=== PATIENT | female | born 1955 | race Caucasian/White ===

== ENCOUNTER 2017-04-28 20:03 | Emergency (ER) | payer OTHER ==
[~2017-04-28] VITALS: Ht 160 cm; Wt 117.0 kg
--- NOTE | ~2017-04-28 | CR72 ---
[facility] A [facility] RADIOLOGY TEXT RESULTS PATIENT: KACI LAN LOCATION: [facility] : 55 UNIT #: [id number] AGE: [address]: Harvey Hendricks MD SEX: F ORDER DR: [id number] [facility] [address] [place], [place] [address] [id number] MR#: [id number] Acc #: [id number] NAME: KACI LAN. : 1955 SEX: F STUDY DATE/TIME: 04/28/2017 21:46 UNIT: [facility] ROOM: STUDY DESCRIPTION: CR Chest Single View Portable Attending Physician: Harvey Hendricks M.D. Ordering Physician: Harvey Hendricks M.D. Primary Care Physician: Moira Perry A.P.R.N. MEDICAL IMAGING REPORT This report is preliminary unless electronic signature is present EXAM AP portable chest DATE: 04/28/2017 HISTORY 61-year-old female with shortness of breath tonight. COMPARISON AP portable chest 11/28/2009. FINDINGS A single AP portable view of the chest shows both lungs to be clear. The heart is normal in size. The mediastinal contour is normal. No significant bone abnormalities are seen. IMPRESSION Normal portable chest. Dictated by... Abby aLnge M.D. THIS IS AN ELECTRONICALLY VERIFIED REPORT Abby Lange M.D. at 04/29/2017 9:56 AM Minesh/richard TD: 04/29/2017 05:29 JOB #: [id number] MEDICAL IMAGING REPORT [facility] A [facility] RADIOLOGY TEXT RESULTS PATIENT: KACI LAN LOCATION: [facility] : 55 UNIT #: [id number] AGE: [address]: Harvey Hendricks MD SEX: F ORDER DR: Page 1 of 1 COPY
--- NOTE | ~2017-04-28 | EKG ---
PATIENT: KACI LAN UNIT #: [id number] Ventricular Rate: 74 BPM Atrial Rate: 74 BPM P-R Interval: 198 ms QRS Duration: 90 ms Q-T Interval: 392 ms QTC Calculation(Bezet): 435 ms P [place]: 14 degrees Calculated R [place]: -14 degrees Calculated T [place]: -2 degrees Diagnosis Line: Normal sinus rhythm Diagnosis Line: Inferior infarct , age undetermined Diagnosis Line: Abnormal ECG Diagnosis Line: No previous ECGs available Diagnosis Line: Confirmed by CHRISTINA MARTINEZ MD ([id number]) on 04/29/2017 Diagnosis Line: 10:06:20 PM INTERPRETING MD: JUAN PEREZ
[~2017-04-28 20:03] MED LIST: AMATIZA; AMATIZA PO; ASPIRIN PO; BACTRIM DS TABL1 TAB PO; DARVOCET-N 1001 TAB PO; LISINOPRIL PO; LORTAB 5/500 TA1 TA1 PO; NEXIUM PO; NUCYNTA50 MG; TOPROL XL PO; TYLOX1 CAP 5/50 PO; VICODIN 5/500 T1 TAB PO; ZANAFLEX PO
[2017-04-28 22:10] LABS: BASOPHIL% 0.5 % (0-2.5); HEMATOCRIT 39.8 % (35.0-45.0); HEMOGLOBIN 13.6 gm/dL (12.0-16.0); LYMPHOCYTE% 20.5 % (17.0-45.0); MEAN CELL VOLUME 91.8 FL (83-96); MEAN CORPUSCULAR HEMOGLOBIN 31.2 PG (28-34); MEAN PLATELET VOLUME 8.6 FL (6.5-11.5); MONOCYTE# 0.6 X10e3 (0-1.0); NEUTROPHIL# 7.1 X10e3 (1.5-7.1); PLATELET COUNT 223 X10e3 (140-420); RED BLOOD COUNT 4.34 X10e (3.90-5.30); RED CELL DISTRIBUTION WIDTH 12.8 % (11.0-15.5); WHITE BLOOD COUNT 9.7 X10e3 (4.0-10.5)
[2017-04-28 22:11] LABS: DIFF IND NO
[2017-04-28 22:19] LABS: POC - CKMB <1.0 ng/mL (0.0-7.9); POC - TROPONIN <0.05 ng/mL (<=0.05)
[2017-04-28 22:30] LABS: ALBUMIN SERUM 4.8 g/dL (3.5-5.0); BILIRUBIN, DIRECT 0.1 mg/dL (0.0-0.2); BILIRUBIN,INDIRECT 0.9 mg/dL (0.0-0.9); BUN/CREATININE RATIO 12.85; CALCIUM SERUM 9.5 mg/dL (8.4-10.2); CREATININE SERUM 0.7 mg/dL (0.6-1.4); GLOM FILT RATE Estimated 93.5 mL/min (>60); POTASSIUM 3.8 mmol/L (3.5-5.1); PROTEIN TOTAL SERUM 8.2 g/dL (6.0-8.3)
[2017-04-29 00:02] LABS: POC - CKMB <1.0 ng/mL (0.0-7.9); POC - TROPONIN <0.05 ng/mL (<=0.05)
== END 2017-04-29 00:22 | disposition home or self-care (01) ==
LOC: CED 20:03
PROVIDERS: Emergency Medicine
DX: R06.02 Shortness of breath (principal); F41.9 Anxiety disorder, unspecified
CPT/HCPCS: 36415; 71010; 80048; 80076; 82553; 84484; 85025; 93005; 99285